=== PATIENT | male | born 1965 | race Caucasian/White ===

== ENCOUNTER 2019-04-09 12:31 | Outpatient (CLI) | payer OTHER ==
--- NOTE | 2019-04-09 13:00 | RAD ---
XR Lumbar Spine 2 Or 3 View: 04/09/2019 12:00 AM CLINICAL INDICATION: Disability evaluation COMPARISON: None. FINDINGS: Fracture:No fracture. Arthropathy:Scattered osseous degenerative change of the lumbar spine. There is right convexity curva ture centered at the lower lumbar spine. Incidental findings:None of significance. IMPRESSION: 1. No acute osseous abnormality.
--- NOTE | 2019-04-09 13:03 | RAD ---
Exam: Chest 2 views HISTORY:Disability exam Comparison: None FINDINGS: Lungs: No masses or consolidation. Cardiac silhouette: Normal size Pulmonary vessels: Normal Pleural Spaces: Clear Pneumothorax: None Osseous abnormalities: None of acuity. IMPRESSION: No focal consolidation.
== END 2019-04-09 12:32 | disposition home or self-care (01) ==
LOC: RAD 12:31
PROVIDERS: ATTEND Psychiatry & Neurology Neurology
DX: Z02.71 Encounter for disability determination (principal)
CPT/HCPCS: 71046; 72100